=== PATIENT | female | born 2000 | race Caucasian/White ===

== ENCOUNTER 2021-07-09 10:56 | Emergency (ER) | payer MEDICARE, OTHER ==
[~2021-07-09] VITALS: Ht 172.7 cm; Wt 61.2 kg
[~2021-07-09 10:56] MED LIST: AMOXICILLIN875 MG PO; CLARITIN10 MG PO; LEXAPRO5 MG PO; MOTRIN IB200 MG PO; NORCO 5-325 TA1 EACH PO; PLAN B ONE-STE1.5 MG PO; SERTRALINE HCL25 MG PO; SERTRALINE HCL50 MG PO; TRAZODONE HCL50 MG PO; VITAMIN D1000 UNI1 PO; ZYRTEC10 M3 PO; ZYRTEC10 MG PO
--- OUTSIDE RECORDS SUMMARY | 2021-07-09 11:04 | XMS ---
PreManage Notification: SUMANTH LAURENT Security Resource Conservation Manager Events No recent Security Events currently on file CRITERIA MET - Group Notification - ED - Positive COVID-19 Lab Result - [facility] ROGE DUMONT Nurse Practitioner Current PHONE: [phone] Care Guidelines exist for the following facilities: [facility] ( 11/22/2019 ) [place] VISIT COUNT (12 MO.) 1 JANET Vasquez TOTAL 1 NOTE: Visits indicate total known visits. ED/UCC VISIT TRACKING (12 MO.) 07/09/2021 10:57 JAN[facility] Silva [place] TYPE: Emergency COMPLAINT: - BODY RASH INPATIENT VISIT TRACKING (12 MO.) No inpatient visits to display in this time frame [email or web address]
[2021-07-09] MEDS ORDERED: VITAMIN D310 MC4 PO (11:15)
[2021-07-09] MEDS ORDERED: VITAMIN C500 MG PO (11:16)
[2021-07-09] MEDS ORDERED: PRENATABS RX T1 EACH PO (11:16)
== END 2021-07-09 12:03 | disposition home or self-care (01) ==
LOC: ED 10:56
DX: L51.9 Erythema multiforme, unspecified (principal); Z87.891 Personal history of nicotine dependence; Z88.8 Allergy status to other drugs, medicaments and biological substances; Z79.899 Other long term (current) drug therapy
CPT/HCPCS: 99282

== ENCOUNTER 2021-07-11 16:26 | Emergency (ER) | payer MEDICARE, OTHER ==
[~2021-07-11] VITALS: Ht 172.7 cm; Wt 61.2 kg
[~2021-07-11 16:26] MED LIST changes: +PRENATABS RX T1 EACH PO; +VITAMIN C500 MG PO; +VITAMIN D310 MC4 PO
--- OUTSIDE RECORDS SUMMARY | 2021-07-11 16:34 | XMS ---
PreManage Notification: SUMANTH LAURENT Security Kitchen Helper Events No recent Security Events currently on file CRITERIA MET - [facility] - 2 Visits in 30 Days - Group Notification - ED - Positive COVID-19 Lab Result - [facility] ANDRIY ROCHA Physician 07/10/2021-Current PHONE: Unknown ROGE DUMONT Nurse Practitioner Current PHONE: [phone] Care Guidelines exist for the following facilities: [facility] ( 11/22/2019 ) [place]ery VISIT COUNT (12 MO.) 2 JANET Vasquez TOTAL 2 NOTE: Visits indicate total known visits. ED/UCC VISIT TRACKING (12 MO.) 07/11/2021 16:27 [facility] Silva [place] TYPE: Emergency COMPLAINT: - NUMBNESS 07/09/2021 10:57 [facility] [place] TYPE: Emergency COMPLAINT: - BODY RASH INPATIENT VISIT TRACKING (12 MO.) No inpatient visits to display in this time frame [email or web address]
== END 2021-07-11 20:16 | disposition home or self-care (01) ==
LOC: ED 16:26
DX: T78.3XXA Angioneurotic edema, initial encounter (principal); Z87.891 Personal history of nicotine dependence; Z88.8 Allergy status to other drugs, medicaments and biological substances; Z79.899 Other long term (current) drug therapy
CPT/HCPCS: 36415; 84702; 85025; 86900; 99284

== ENCOUNTER 2021-08-23 15:50 | Emergency (ER) | payer MEDICARE, OTHER ==
[~2021-08-23] VITALS: Ht 172.7 cm; Wt 61.2 kg
--- OUTSIDE RECORDS SUMMARY | 2021-08-23 15:56 | XMS ---
PreManage Notification: SUMANTH LAURETN Security Rn Lactation Consultant Events No recent Security Events currently on file CRITERIA MET - Group Notification [facility] ANDRIY ROCHA Physician Procurement Professional Logistics 07/10/2021-Current PHONE: Unknown ROGE DUMONT Nurse Practitioner Current PHONE: [phone] Care Guidelines exist for the following facilities: [facility] ( 11/22/2019 ) Jeffery VISIT COUNT (12 MO.) [address] [facility] TOTAL 3 NOTE: Visits indicate total known visits. ED/UCC VISIT TRACKING (12 MO.) 08/23/2021 15:50 [facility] [place] TYPE: Emergency COMPLAINT: - ABDOMINAL PAIN 07/11/2021 16:27 [facility] [place] TYPE: Emergency COMPLAINT: - NUMBNESS DIAGNOSES: - Personal history of nicotine dependence - Angioneurotic edema, initial encounter - Rash and other nonspecific skin eruption - Allergy status to other drugs, medicaments and biological substances - Other intermediate (current) drug therapy 07/09/2021 10:[address] [facility] [place] TYPE: Emergency COMPLAINT: - BODY RASH DIAGNOSES: - Other intermediate (current) drug therapy - Allergy status to other drugs, medicaments and biological substances - Rash and other nonspecific skin eruption - Erythema multiforme, unspecified - Personal history of nicotine dependence INPATIENT VISIT TRACKING (12 MO.) No inpatient visits to display in this time frame [email or web address]
== END 2021-08-23 20:55 | disposition home or self-care (01) ==
LOC: ED 15:50
DX: K59.00 Constipation, unspecified (principal); G89.29 Other chronic pain; Z87.891 Personal history of nicotine dependence; Z88.8 Allergy status to other drugs, medicaments and biological substances; Z79.899 Other long term (current) drug therapy
CPT/HCPCS: 36415; 80053; 81001; 83690; 84703; 85025; 85060; 99284

== ENCOUNTER 2022-01-03 13:46 | Inpatient (IN) | payer MEDICARE, OTHER ==
[~2022-01-03] VITALS: Ht 172.7 cm; Wt 62.6 kg
--- OUTSIDE RECORDS SUMMARY | 2022-01-03 13:54 | XMS ---
PreManage Notification: SUMANTH LAURENT Security Newspaper Manager Events No recent Security Events currently on file CRITERIA MET - Group Notification [facility] ANDRIY ROCHA Physician Model Maker Scale 07/10/2021-Current PHONE: Unknown ROGE DUMONT Nurse Practitioner Current PHONE: [phone] Care Guidelines exist for the following facilities: [facility] ( 11/22/2019 ) [place] VISIT COUNT (12 MO.) [address] [facility] TOTAL 4 NOTE: Visits indicate total known visits. ED/UCC VISIT TRACKING (12 MO.) 01/03/2022 13:46 [facility] [place] TYPE: Emergency COMPLAINT: - SUICIDAL 08/23/2021 15:50 [facility] [place] TYPE: Emergency COMPLAINT: - ABDOMINAL PAIN DIAGNOSES: - Other chronic pain - Other usp (current) drug therapy - Lower abdominal pain, unspecified - Constipation, unspecified - Personal history of nicotine dependence - Allergy status to other drugs, medicaments and biological substances 07/11/2021 16:27 [facility] [place] TYPE: Emergency COMPLAINT: - NUMBNESS DIAGNOSES: - Personal history of nicotine dependence - Angioneurotic edema, initial encounter - Rash and other nonspecific skin eruption - Allergy status to other drugs, medicaments and biological substances - Other usp (current) drug therapy 07/09/2021 10:57 [facility] [place] TYPE: Emergency COMPLAINT: - BODY RASH DIAGNOSES: - Other moth exterminator (current) drug therapy - Allergy status to other drugs, medicaments and biological substances - Rash and other nonspecific skin eruption - Erythema multiforme, unspecified - Personal history of nicotine dependence INPATIENT VISIT TRACKING (12 MO.) No inpatient visits to display in this time frame [email or web address]
--- NOTE | 2022-01-05 07:10 | EKG ---
[facility] [address] [facility] [place] [address] Signed Sinus tachycardia Incomplete right bundle branch block Nonspecific T wave abnormality Abnormal ECG No previous ECGs available Confirmed by EMILY LINN MD ([id number]) on 01/05/2022 7:10:05 AM Electronically Signed By: EMILY LINN MD 01/05/22 0710 PATIENT NAME: JIMENEZ LAURENTAFIAMARILYN BASILIA Electrocardiogram DATE OF : [birth year] PHYSICIAN: EMILY LINN MD REPORT #: [id number] REPORT IS CONFIDENTIAL AND NOT TO BE RELEASED WITHOUT AUTHORIZATION
--- NOTE | 2022-01-05 07:11 | EKG ---
[facility] [address] [facility] [place] [address] Signed Normal sinus rhythm Prolonged QT Abnormal ECG When compared with ECG of 03-JAN-2022 13:43, (Unconfirmed) Nonspecific T wave abnormality no longer evident in Inferior leads Confirmed by EMILY LINN MD ([id number]) on 01/05/2022 7:11:24 AM Electronically Signed By: EMILY LINN MD 01/05/22 0711 PATIENT NAME: SUMANTH LAURENT Electrocardiogram DATE OF : [birth year] PHYSICIAN: EMILY LINN MD REPORT #: [id number] REPORT IS CONFIDENTIAL AND NOT TO BE RELEASED WITHOUT AUTHORIZATION
--- NOTE | 2022-01-05 07:12 | EKG ---
[facility] [address] [facility] [place] [address] Signed Normal sinus rhythm Rightward axis Incomplete right bundle branch block Nonspecific T wave abnormality Prolonged QT Abnormal ECG When compared with ECG of 03-JAN-2022 19:23, (Unconfirmed) No significant change was found Confirmed by EMILY LINN MD ([id number]) on 01/05/2022 7:12:05 AM Electronically Signed By: EMILY LINN MD 01/05/2212 PATIENT NAME: LAURENTSUMANTH Electrocardiogram DATE OF : [birth year] PHYSICIAN: EMILY LINN MD REPORT #: [id number] REPORT IS CONFIDENTIAL AND NOT TO BE RELEASED WITHOUT AUTHORIZATION
--- NOTE | 2022-01-05 22:44 | EKG ---
[facility] [address] [facility] [place] [address] Signed Sinus tachycardia Incomplete right bundle branch block Borderline ECG When compared with ECG of 04-JAN-2022 09:57, No significant change was found Confirmed by EMILY LINN MD ([id number]) on 01/05/2022 10:44:32 PM Electronically Signed By: EMILY LINN MD 01/05/22 2244 PATIENT NAME: SUMANTH LAURENT Electrocardiogram DATE OF : [birth year] PHYSICIAN: EMILY LINN MD REPORT #: [id number] REPORT IS CONFIDENTIAL AND NOT TO BE RELEASED WITHOUT AUTHORIZATION
[2022-01-06] MEDS ORDERED: LEVETIRACETAM500 MG PO ×2 (07:54→07:59)
== END 2022-01-06 15:20 | disposition home or self-care (01) | DRG 918 ==
LOC: ED 13:46 → CCU 15:37
PROVIDERS: ADMIT Internal Medicine; ATTEND Internal Medicine
PROC: 5A1945Z Respiratory Ventilation, 24-96 Consecutive Hours (ICD-10-PCS; principal; 2022-01-03)
PROC: 0BH17EZ Insertion of Endotracheal Airway into Trachea, Via Natural or Artificial Opening (ICD-10-PCS; 2022-01-03)
DX: T44.3X2A Poisoning by other parasympatholytics [anticholinergics and antimuscarinics] and spasmolytics, intentional self-harm, initial encounter (principal); T45.0X2A Poisoning by antiallergic and antiemetic drugs, intentional self-harm, initial encounter; F41.9 Anxiety disorder, unspecified; G40.909 Epilepsy, unspecified, not intractable, without status epilepticus; F32.9 Major depressive disorder, single episode, unspecified; Z20.822 Contact with and (suspected) exposure to COVID-19; Z87.891 Personal history of nicotine dependence; Z88.8 Allergy status to other drugs, medicaments and biological substances; Z88.1 Allergy status to other antibiotic agents
CPT/HCPCS: 36415; 36600; 71045; 80048; 80053; 81001; 82803; 83735; 84443; 84703; 85025; 87502; 93005; 93010; 94003; A9270; G0480; J0330; J1650; J1953; J2060; J2704; J3480; J7030; J7060; U0003

== ENCOUNTER 2022-03-04 11:10 | Emergency (ER) | payer MEDICARE, OTHER ==
[~2022-03-04] VITALS: Ht 172.7 cm; Wt 60.0 kg
[~2022-03-04 11:10] MED LIST changes: +LEVETIRACETAM500 MG PO
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
[2022-03-04] MEDS ORDERED: NAPROSYN500 MG PO (16:57)
== END 2022-03-04 17:08 | disposition home or self-care (01) ==
LOC: ED 11:10
DX: U07.1 COVID-19 (principal); Z88.8 Allergy status to other drugs, medicaments and biological substances
CPT/HCPCS: 87502; 99283; A9270-GY; C9803; U0003

== ENCOUNTER 2022-11-21 03:37 | Inpatient (IN) | payer MEDICARE, OTHER ==
[~2022-11-21] VITALS: Ht 167.6 cm; Wt 77.1 kg
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
[~2022-11-21 03:37] MED LIST changes: +CEPHALEXIN500 MG PO; +NAPROSYN500 MG PO
[2022-11-21 06:55] VITALS: BP 135/81
--- NOTE | 2022-11-21 09:27 | PR ---
[facility] [address] [facility] [place] [facility] [place], [place] [address] Signed Progress Notes IP Datetime Report Generated by CPN: 11/21/2022 09:27 PROGRESS NOTES: [id number] Impression: Reassuring Heart Rate Plan: Augmentation VITAL SIGNS: [id number] Vital Signs: Reviewed; Within Normal Limits EXAM: [id number] Dilatation: 1.5 Effacement: 80 Station: -2 Contractions: Irregular MEMBRANES: [id number] Nitrazine: Positive Amniotic Fluid Color: Clear Comments: Pt seen and evaluated. Just checked by RN and no change since admission. Pt struggling w/ needle phobia and discomfort but improved w/ coaching and taping. Will start pitocin for PPROM. All questions answered FETUS A: [id number] FHR Baseline: 125 Variability: Moderate 6-25bpm Accelerations: 15X15 Decelerations: None FHR Category: Category I Presentation: Vertex Comments on Fetus A: No evidence of metabolic acidosis FETUS B: [id number] Signing Physician: Senait Almeida DO Copies: ~ *Electronically Signed* 11/21/22 0927 SENAIT ALMEIDA (STALIN) DO PATIENT NAME: SUMANTH LAURENT PROGRESS NOTE DATE OF : [birth year] PHYSICIAN: SENAIT ALMEIDA) DO RPT #: [id number] REPORT IS CONFIDENTIAL AND NOT TO BE RELEASED WITHOUT AUTHORIZATION
--- NOTE | 2022-11-21 15:18 | PR ---
[facility] [address] [place], [place] [address] Signed Progress Notes IP Datetime Report Generated by CPN: 11/21/2022 15:18 PROGRESS NOTES: [id number] Impression: Normal Progression of Labor; Reassuring Heart Rate Procedures: Sterile Vag Exam Plan: Continue Present Management Informed Consent Obtain: Vaginal Delivery VITAL SIGNS: [id number] Vital Signs: Reviewed; Within Normal Limits EXAM: [id number] Dilatation: 9.0 Effacement: 90 Station: 0 Contractions: Irregular MEMBRANES: [id number] Nitrazine: Positive Amniotic Fluid Color: Clear Comments: Pt seen and examined. Doing well. Contractions regular and very painful. 9/90/0 on exam. Discussed anticipated course of labor/delivery. Discussed options for pain management including coping mechanisms, nitrous oxide, or neuroaxial anesthesia. Pt and family considering. All questions answered. FETUS A: [id number] FHR Baseline: 125 Variability: Moderate 6-25bpm Accelerations: 15X15 Decelerations: None FHR Category: Category I Presentation: Vertex Comments on Fetus A: No evidence of metabolic acidosis FETUS B: [id number] Signing Physician: Senait Almeida DO Copies: ~ *Electronically Signed* 11/21/22 1518 SENAIT ALMEIDA (STALIN) DO PATIENT NAME: SUMANTH LAURENT PROGRESS NOTE DATE OF : [birth year] PHYSICIAN: SENAIT ALMEIDA (JD) DO RPT #: [id number] REPORT IS CONFIDENTIAL AND NOT TO BE RELEASED WITHOUT AUTHORIZATION
--- NOTE | 2022-11-21 15:53 | PR ---
[facility] [address] [facility] [place], [place] [address] Signed Progress Notes IP Datetime Report Generated by CPN: 11/21/2022 15:53 PROGRESS NOTES: [id number] Impression: Normal Progression of Labor; Reassuring Heart Rate Procedures: Sterile Vag Exam Plan: Continue Present Management; Anticipate Vaginal Delivery Informed Consent Obtain: Vaginal Delivery VITAL SIGNS: [id number] Vital Signs: Reviewed; Within Normal Limits EXAM: [id number] Dilatation: 9.5 Effacement: 100 Station: 0 Contractions: Irregular MEMBRANES: [id number] Nitrazine: Positive Amniotic Fluid Color: Clear Comments: Pt seen and examined. Very uncomfortable w/ contractions but declines pain management options. Thin anterior lip. Pt will labor down and will start pushing once complete. FETUS A: [id number] FHR Baseline: 125 Variability: Moderate 6-25bpm Accelerations: 15X15 Decelerations: None FHR Category: Category I Presentation: Vertex Comments on Fetus A: No evidence of metabolic acidosis FETUS B: [id number] Signing Physician: Senait Almeida DO Copies: ~ *Electronically Signed* 11/21/22 1553 SENAIT ALMEIDA (STALIN) DO PATIENT NAME: SUMANTH LAURENT PROGRESS NOTE DATE OF : [birth year] PHYSICIAN: SENAIT ALMEIDA) DO RPT #: [id number] REPORT IS CONFIDENTIAL AND NOT TO BE RELEASED WITHOUT AUTHORIZATION
--- NOTE | 2022-11-22 10:01 | PR ---
[facility] [address] [place], [place] [address] Signed PP Progress Notes Datetime Report Generated by CPN: 11/22/2022 10:01 SUBJECTIVE: [id number] Pain: Within Normal Limits Nausea/Vomiting: Denies Flatus: Yes Bowel Movement: No Vital Signs: [id number] Vital Signs: Reviewed; Within Normal Limits Cardiovascular: Normal Respiratory: Normal Abdomen/Uterus: Normal Lochia: Normal Vulva/Perineum: Not Done Breasts: Not Done CVA Tenderness: Normal Extremities: Normal Incision: Not Applicable Progress: Normal Exam Comments: Fundus firm U-2 nontender IMPRESSION/PLAN/PROCEDURES: [id number] Impression: Normal Progression; Difficulties Plan: Continue Present Management; Consult Progress Notes: Pt seen and examined. Doing well. Ambulating, voiding, and tolerating full diet. Pain and lochia minimal. with some difficulty and working with RN/. No fever/chills or other concerns. Anticipate d/c home tomorrow. Hgb 11.3 Signing Physician: Senait Almeida DO Copies: ~ *Electronically Signed* 11/22/22 1001 SENAIT ALMEIDA (STALIN) DO PATIENT NAME: SUMANTH LAURENT PROGRESS NOTE DATE OF : 99 PHYSICIAN: SENAIT ALMEIDA) DO RPT #: [id number] REPORT IS CONFIDENTIAL AND NOT TO BE RELEASED WITHOUT AUTHORIZATION
--- NOTE | 2022-11-23 19:48 | PR ---
[facility] [address] [place], [place] [address] Signed PP Progress Notes Datetime Report Generated by CPN: 11/23/2022 19:48 SUBJECTIVE: [id number] Pain: Within Normal Limits Nausea/Vomiting: Denies Flatus: Yes Bowel Movement: No Vital Signs: [id number] Vital Signs: Reviewed; Within Normal Limits Cardiovascular: Normal Respiratory: Normal Abdomen/Uterus: Normal Lochia: Normal Vulva/Perineum: Not Done Breasts: Not Done CVA Tenderness: Normal Extremities: Normal Incision: Not Applicable Progress: Abnormal Exam Comments: Fundus firm U-2 Nontender IMPRESSION/PLAN/PROCEDURES: [id number] Impression: Normal Progression Plan: Consult; Discharge Progress Notes: Pt seen and examined. Doing well. Ambulating, voiding, and tolerating full diet. w/ some difficulty and now receiving additional support from staff. Discharge to [facility] status to continue w/ assistance. Reviewed d/c instructions, medications, and f/u. All questions answered. Signing Physician: Senait Almeida DO Copies: ~ *Electronically Signed* 11/23/221947 SENAIT ALMEIDA (STALIN) DO PATIENT NAME: SUMANTH LAURENT PROGRESS NOTE DATE OF : 99 PHYSICIAN: SENAIT ALMEIDA) DO RPT #: [id number] REPORT IS CONFIDENTIAL AND NOT TO BE RELEASED WITHOUT AUTHORIZATION
== END 2022-11-23 23:30 | disposition home or self-care (01) | DRG 807 ==
LOC: FBCO 03:37 → FBC 04:35
PROVIDERS: ADMIT Obstetrics & Gynecology; ATTEND Obstetrics & Gynecology
PROC: 10E0XZZ Delivery of Products of Conception, External Approach (ICD-10-PCS; principal; 2022-11-21)
PROC: 0UQKXZZ Repair Hymen, External Approach (ICD-10-PCS; 2022-11-21)
PROC: 0HQ9XZZ Repair Perineum Skin, External Approach (ICD-10-PCS; 2022-11-21)
DX: O42.013 Preterm premature rupture of membranes, onset of labor within 24 hours of rupture, third trimester (principal); Z37.0 Single live birth; O70.0 First degree perineal laceration during delivery; Z3A.36 36 weeks gestation of pregnancy; O99.62 Diseases of the digestive system complicating childbirth; K59.09 Other constipation; Z86.19 Personal history of other infectious and parasitic diseases; O77.0 Labor and delivery complicated by meconium in amniotic fluid; Z88.2 Allergy status to sulfonamides; Z88.8 Allergy status to other drugs, medicaments and biological substances; Z88.1 Allergy status to other antibiotic agents
CPT/HCPCS: 36415; 59025; 84112; 85027; 86850; 86900; 86901; A9270; G0463; J2540; J7121

== ENCOUNTER 2024-01-25 14:29 | Inpatient (IN) | payer MEDICARE, OTHER ==
[~2024-01-25] VITALS: Ht 170.2 cm; Wt 74.8 kg
[2024-01-25] MEDS ORDERED: OXYTOCIN/DEXTROSE 5% 20 UNITS/100 ML BAG IV SCH (15:00)
[2024-01-25] MEDS ORDERED: MAGNESIUM HYDROXIDE/AL HYDROX 30 ML CUP PO PRN ×2 (15:00→18:45)
[2024-01-25] MEDS ORDERED: LACTATED RINGER'S 1,000 ML IV SCH (15:00)
[2024-01-25] MEDS ORDERED: OXYTOCIN 10 UNITS/ML VIAL IM SCH (15:00)
[2024-01-25] MEDS ORDERED: CALCIUM CARBONATE 500 MG CHEW PO PRN ×2 (15:00→18:45)
[2024-01-25] MEDS ORDERED: LIDOCAINE 2% VISCOUS 6 ML SYR TOP ONE ×2 (15:00)
[2024-01-25 15:21] VITALS: BP 116/72
[2024-01-25 15:44] LABS: HEMATOCRIT 41.1 % (35.0-50.0); MCH 31.6 (27-36); MCHC 34.2 g/dl (30-36); MCV 92.7 fl (81-99); RBC 4.43 M/ul (4.3-5.7); RDW 14.1 (10.5-15.0)
[2024-01-25] MEDS ORDERED: PENICILLIN G POTASSIUM 5 MUNITS/110 ML PIGGYBACK IV ONE (15:45)
[2024-01-25 15:47] LABS: AMPHETAMINES, URINE NEGATIVE (NEGATIVE); BARBITURATES, URINE NEGATIVE (NEGATIVE); BENZODIAZEPINE, URINE NEGATIVE (NEGATIVE); BUPRENORPHINE, URINE NEGATIVE (NEGATIVE); CANNABINOID, URINE NEGATIVE (NEGATIVE); COCAINE, URINE NEGATIVE (NEGATIVE); ECSTASY, URINE NEGATIVE (NEGATIVE); FENTANYL, URINE NEGATIVE (NEGATIVE); METHADONE, URINE NEGATIVE (NEGATIVE); OPIATES, URINE NEGATIVE (NEGATIVE); OXYCODONE, URINE NEGATIVE (NEGATIVE); PHENCYCLIDINE, URINE NEGATIVE (NEGATIVE)
[2024-01-25 16:18] LABS: ABO O; RH POSITIVE
[2024-01-25 16:19] LABS: ANTIBODY SCREEN NEGATIVE
--- NOTE | 2024-01-25 17:59 | PR ---
[facility] [address] [place], [place] [address] Signed Progress Notes IP Datetime Report Generated by CPN: 01/25/2024 17:59 PROGRESS NOTES: [id number] Impression: Normal Progression of Labor; Reassuring Heart Rate Procedures: Sterile Vag Exam Plan: Continue Present Management; Anticipate Vaginal Delivery Informed Consent Obtain: Vaginal Delivery VITAL SIGNS: [id number] Vital Signs: Reviewed; Within Normal Limits EXAM: [id number] Dilatation: 8.0 Effacement: 90 Station: -2 Contractions: q 1-2 min MEMBRANES: [id number] Amniotic Fluid Color: Clear Comments: Pt seen and examined. Doing well. Uncomfortable w/ contractions but not interested in epidural. No concerns. Reassuring FHT. Anticipate soon FETUS A: [id number] FHR Baseline: 125 Variability: Moderate 6-25bpm Accelerations: 15X15 Decelerations: None FHR Category: Category I Presentation: Vertex Comments on Fetus A: No signs of metabolic acidosis FETUS B: [id number] Signing Physician: Senait Almeida DO Copies: ~ *Electronically Signed* 01/25/24 1019 SENAIT ALMEIDA (STALIN) DO PATIENT NAME: SUMANTH LAURENT PROGRESS NOTE DATE OF : 99 PHYSICIAN: SENAIT ALMEIDA (JD) DO RPT #: [id number] REPORT IS CONFIDENTIAL AND NOT TO BE RELEASED WITHOUT AUTHORIZATION
[2024-01-25] MEDS ORDERED: PENICILLIN G POTASSIUM 2.5 MUNITS in DEXTROSE 5% 100 ML IV SCH (18:00)
[2024-01-25] MEDS ORDERED: OXYCODONE/APAP 5/325 TAB PO PRN (18:45)
[2024-01-25] MEDS ORDERED: HYDROCORTISONE ACETATE 25 MG SUPP PR PRN (18:45)
[2024-01-25] MEDS ORDERED: BENZOCAINE 60 ML AEROSOL TOP PRN (18:45)
[2024-01-25] MEDS ORDERED: OXYTOCIN/0.9 % SODIUM CHLORIDE 500 ML IV SCH (18:45)
[2024-01-25] MEDS ORDERED: IBUPROFEN 600 MG TAB PO PRN (18:45)
[2024-01-25] MEDS ORDERED: MAGNESIUM HYDROXIDE 30 ML UDC PO PRN (18:45)
[2024-01-25] MEDS ORDERED: ACETAMINOPHEN 325 MG TAB PO PRN (18:45)
[2024-01-25] MEDS ORDERED: WITCH HAZEL/GLYCERIN 1 EA PAD TOP PRN (18:45)
[2024-01-25] MEDS ORDERED: HYDROCODONE/ACETA 5/325 TAB PO PRN (18:45)
[2024-01-25] MEDS ORDERED: IBUPROFEN 600 MG TAB ONE (18:48)
[2024-01-25] MEDS ORDERED: HYDROmorphone HCL 1 MG/ML SYR IM PRN (19:00)
[2024-01-25] MEDS ORDERED: SENNOSIDES/DOCUSATE 1 EA TAB PO SCH (21:00)
[2024-01-26 05:41] LABS: HEMATOCRIT 33.1 % (35.0-50.0); HEMOGLOBIN 11.5 g/dL (12.0-18.0); MCH 31.6 (27-36); MCHC 34.6 g/dl (30-36); MCV 91.4 fl (81-99); RBC 3.62 M/ul (4.3-5.7); RDW 13.9 (10.5-15.0)
--- NOTE | 2024-01-26 07:17 | PR ---
[facility] [address] [facility] [address] [facility] [place], [place] [address] Signed PP Progress Notes Datetime Report Generated by CPN: 01/26/2024 07:17 SUBJECTIVE: [id number] Pain: Within Normal Limits Nausea/Vomiting: Denies Flatus: Yes Bowel Movement: No Vital Signs: [id number] Vital Signs: Reviewed; Within Normal Limits Cardiovascular: Normal Respiratory: Normal Abdomen/Uterus: Normal Lochia: Normal Vulva/Perineum: Not Done Breasts: Not Done CVA Tenderness: Normal Extremities: Normal Incision: Not Applicable Progress: Normal Exam Comments: Fundus firm U-2 nontender, IMPRESSION/PLAN/PROCEDURES: [id number] Impression: Normal Progression Progress Notes: Pt seen and examined. Doing well. Ambulating, voiding, and tolerating full diet. Pain and lochia minimal. well. No concerns. Anticipate d/c home tomorrow. Signing Physician: Senait Almeida DO Copies: ~ *Electronically Signed* 01/26/24 0717 SENAIT ALMEIDA (STALIN) DO PATIENT NAME: MEHRANSUMANTH PROGRESS NOTE DATE OF : 99 PHYSICIAN: SENAIT ALMEIDA (STALIN) DO RPT #: [id number] REPORT IS CONFIDENTIAL AND NOT TO BE RELEASED WITHOUT AUTHORIZATION
--- NOTE | 2024-01-26 11:55 | NUR ---
PROVIDED BLESSING REQUESTED BY PT. DETAILED NOTE IN [facility].
--- NOTE | 2024-01-27 07:59 | PR ---
[facility] [address] [place], [place] [address] Signed PP Progress Notes Datetime Report Generated by CPN: 01/27/2024 07:58 SUBJECTIVE: [id number] Pain: Within Normal Limits Nausea/Vomiting: Denies Flatus: Yes Bowel Movement: No Vital Signs: [id number] Vital Signs: Reviewed; Within Normal Limits Cardiovascular: Normal Respiratory: Normal Abdomen/Uterus: Normal Lochia: Normal Vulva/Perineum: Not Done Breasts: Not Done CVA Tenderness: Normal Extremities: Normal Incision: Not Applicable Progress: Normal Exam Comments: Fundus firm U-2 nontender IMPRESSION/PLAN/PROCEDURES: [id number] Impression: Normal Progression Plan: Discharge Progress Notes: Pt seen and examined. Doing well. Ambulating, voiding, and tolerating full diet. Pain and lochia minimal. No fevers/chills or other concerns. Desires d/c home. Planning condoms for pp contraception. No other questions or concerns. Signing Physician: Senait Almeida DO Copies: ~ *Electronically Signed* 01/27/24 0758 SENAIT ALMEIDA (STALIN) DO PATIENT NAME: SUMANTH LAURENT PROGRESS NOTE DATE OF : 99 PHYSICIAN: SENAIT ALMEIDA (STALIN) DO RPT #: [id number] REPORT IS CONFIDENTIAL AND NOT TO BE RELEASED WITHOUT AUTHORIZATION
== END 2024-01-27 18:15 | disposition home or self-care (01) | DRG 807 ==
LOC: FBCO 14:29 → FBC 14:40
PROVIDERS: Obstetrics & Gynecology; ADMIT Obstetrics & Gynecology; ATTEND Obstetrics & Gynecology
PROC: 10E0XZZ Delivery of Products of Conception, External Approach (ICD-10-PCS; principal; 2024-01-25)
DX: O42.02 Full-term premature rupture of membranes, onset of labor within 24 hours of rupture (principal); Z37.0 Single live birth; Z3A.37 37 weeks gestation of pregnancy; Z88.2 Allergy status to sulfonamides; K58.9 Irritable bowel syndrome, unspecified; O99.62 Diseases of the digestive system complicating childbirth; Z88.8 Allergy status to other drugs, medicaments and biological substances
CPT/HCPCS: 36415; 80307; 85027; 86850; 86900; 86901; A9270; J2540; J2590; J7121

== ENCOUNTER 2024-02-03 15:51 | Emergency (ER) | payer MEDICARE, OTHER ==
[~2024-02-03] VITALS: Ht 182.9 cm; Wt 65.8 kg
--- OUTSIDE RECORDS SUMMARY | 2024-02-03 15:54 | XMS ---
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 Events No recent Security Events currently on file CRITERIA MET - Group Notification CARE PROVIDERS ANDRIY ROCHA Physician Psychologist Industrial Organizational 07/10/2021-Current PHONE: Unknown -Enrique+ Dentist: Employment Instructional Associate [facility] PHONE: [phone] -Stephanie- Dentist: Employment Instructional Associate Current [facility] PHONE: [phone] [address] [facility] Current PHONE: Unknown ROGE DUMONT Nurse Practitioner Current PHONE: [phone] Care Guidelines exist for the following facilities: [facility] ( 11/22/2019 ) [facility] VISIT COUNT (12 MO.) 1 JANET Vasquez TOTAL 1 NOTE: Visits indicate total known visits. ED/UCC VISIT TRACKING (12 MO.) 02/03/2024 15:51 [facility] [place] TYPE: Emergency COMPLAINT: - PROBLEM INPATIENT VISIT TRACKING (12 MO.) 01/25/2024 14:40 [facility] OR TYPE: [facility] COMPLAINT: - LABOR AND DELIVERY DIAGNOSES: - 37 weeks gestation of - Allergy status to other drugs, medicaments and biological substances - Allergy status to sulfonamides - Diseases of the digestive system complicating childbirth - Full-term premature rupture of membranes, onset of labor within 24 hours of rupture - Irritable bowel syndrome without diarrhea - Single live [email or web address]
[2024-02-03] MEDS ORDERED: MAGNESIUM OXID250 MG PO (17:08)
[2024-02-03 17:24] LABS: BASOPHILS 0.5 % (0-2); EOSINOPHILS 1.6 % (0-6); HEMATOCRIT 43.5 % (35.0-50.0); HEMOGLOBIN 14.4 g/dL (12.0-18.0); LYMPHOCYTES 21.4 % (24-44); MCH 30.8 (27-36); MCV 93.1 fl (81-99); MONOCYTES 6.3 % (0-12); NEUTROPHILS 70.2 % (39-80); PLATELET COUNT 280 K/uL (140-440); RBC 4.67 M/ul (4.3-5.7); RDW 13.9 (10.5-15.0)
[2024-02-03] MEDS ORDERED: SODIUM CHLORIDE 0.9% 1,000 ML IV ONE (17:30)
[2024-02-03] MEDS ORDERED: ACETAMINOPHEN 500 MG TAB PO ONE (17:30)
[2024-02-03 17:35] LABS: ALBUMIN 3.2 g/dL (3.4-5.0); ALBUMIN/GLOBULIN RATIO 0.73 (1.1-2.4); ANION GAP 14.9 (7-21); BILIRUBIN, TOTAL 0.3 ng/dL (0.2-1.0); BUN/CREATININE RATIO 19.27 (6.0-28.6); CALCIUM 8.8 mg/dL (8.5-10.1); CREATININE, SERUM 0.83 mg/dL (0.55-1.02); POTASSIUM 3.9 mmol/L (3.5-5.1); PROTEIN, TOTAL 7.6 g/dL (6.4-8.2)
[2024-02-03 18:29] LABS: BILIRUBIN, URINE NEGATIVE (negative); BLOOD/HGB, URINE LARGE (Negative); KETONE, URINE NEGATIVE (Negative); LEUK ESTERASE, URINE MODERATE (negative); NITRITE, URINE NEGATIVE (negative)
[2024-02-03 18:39] LABS: BACTERIA, URINE RARE /hpf (negative); CASTS, URINE NONE SEEN \\lpf; COLLECTION TYPE, URINE CLEAN CATCH; CRYSTALS, URINE NONE SEEN (0-1+); EPITHELIAL CELLS, URINE SQUAMOUS 1+ /lpf (0-1+); RED BLOOD CELLS, URINE >50 /hpf (0-5); REFLEX CULTURE, URINE Yes (No); WHITE BLOOD CELLS, URINE 41-50 /HPF (0-5)
[2024-02-03 19:10] VITALS: BP 110/75
== END 2024-02-03 19:10 | disposition home or self-care (01) ==
LOC: ED 15:51
PROVIDERS: Emergency Medicine
DX: O72.1 Other immediate postpartum hemorrhage (principal); Z87.891 Personal history of nicotine dependence; Z88.1 Allergy status to other antibiotic agents; Z88.2 Allergy status to sulfonamides; Z88.8 Allergy status to other drugs, medicaments and biological substances; Z79.899 Other long term (current) drug therapy
CPT/HCPCS: 36415; 76856; 80053; 81001; 85025; 87088; 99284-25; A9270; J7030

== ENCOUNTER 2025-04-08 16:49 | Emergency (ER) | payer MEDICARE, OTHER ==
[~2025-04-08] VITALS: Ht 170.2 cm; Wt 58.7 kg
[~2025-04-08 16:49] MED LIST changes: +MAGNESIUM OXID250 MG PO
--- OUTSIDE RECORDS SUMMARY | 2025-04-08 16:50 | XMS ---
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 JASON Alvarez [facility]: Primary Care MD ZBIGNIEW Izquierdo \F\ <UNAVAIL> PHONE: [phone] ROGE DUMONT Nurse Practitioner Current PHONE: [phone] Care Guidelines exist for the following facilities: [facility] ( 11/22/2019 ) [place] VISIT COUNT (12 MO.) [address] [facility] TOTAL 1 NOTE: Visits indicate total known visits. ED/UCC VISIT TRACKING (12 MO.) 04/08/2025 16:49 [facility] TYPE: Emergency COMPLAINT: - VAGINAL PAIN INPATIENT VISIT TRACKING (12 MO.) No inpatient visits to display in this time frame [email or web address]
[2025-04-08 18:55] LABS: BLOOD/HGB, URINE NEGATIVE (Negative); KETONE, URINE TRACE (Negative); LEUK ESTERASE, URINE NEGATIVE (negative); NITRITE, URINE NEGATIVE (negative)
[2025-04-08 19:03] LABS: BACTERIA, URINE RARE /hpf (negative); CASTS, URINE NONE SEEN \\lpf; CRYSTALS, URINE NONE SEEN (0-1+); EPITHELIAL CELLS, URINE SQUAMOUS 2+ /lpf (0-1+)
[2025-04-08 19:04] LABS: REFLEX CULTURE, URINE No (No)
[2025-04-08 19:48] VITALS: BP 109/65
== END 2025-04-08 19:48 | disposition left against medical advice (07) ==
LOC: ED 16:49
PROVIDERS: Emergency Medicine
DX: L29.2 Pruritus vulvae (principal); L29.0 Pruritus ani; R23.8 Other skin changes; Z53.21 Procedure and treatment not carried out due to patient leaving prior to being seen by health care provider
CPT/HCPCS: 81001; 84703